=== PATIENT | female | born 1945 | race African-American/Black ===

== ENCOUNTER 2020-01-30 16:48 | Inpatient (IN) | payer OTHER ==
[~2020-01-30] VITALS: Ht 165.1 cm; Wt 81.6 kg
[2020-01-30] MEDS ORDERED: SODIUM CHLORIDE 0.9% 1,000 ML IV ONE ×3 (17:19→18:30)
[2020-01-30 17:48] LABS: HEMATOCRIT. 33.5 % (36.0-48.0); HEMOGLOBIN. 10.7 g/dL (12.0-16.0); MEAN CORPUSCULAR HEMOGLOBIN 30.6 pg (28.0-32.0); MEAN CORPUSCULAR VOLUME 95.5 fL (81.0-99.0); MEAN PLATELET VOLUME 8.7 fl (7.4-10.4); PLATELET 213 x1000/uL (130-400); RED BLOOD CELL COUNT 3.51 mill/uL (4.2-5.4)
[2020-01-30 17:55] LABS: INR 1.2; PROTHROMBIN TIME 13.2 sec (9.6-11.0)
[2020-01-30 18:22] LABS: NUCLEATED RED BLOOD CELLS 4 /100 WBC; PLATELET ESTIMATE NORMAL
[2020-01-30] MEDS ORDERED: NOREPINEPHRINE 4MG/250ML PMX 250 ML IV ONE (18:30)
[2020-01-30 18:35] LABS: CHLORIDE 118 mEq/L (98-107)
[2020-01-30] MEDS ORDERED: VANCOMYCIN 1 G PREMIX 200 ML IV ONE (20:15)
[2020-01-30] MEDS ORDERED: PIPERACILLIN/TAZ 3.375G PREMIX 50 ML IV ONE (20:15)
[2020-01-30 20:32] LABS: BG BASE EXCESS -23.2 mmol/L (-2.0-2.0); BG CARBOXYHEMOGLOBIN 1.8 % (0.5-1.5); BG DEOXYHEMOGLOBIN 8.5 % (0.0-5.0); BG FRACTION INSPIRED OXYGEN 21; BG HCO3 ACT 6.8 mmol/L (22.0-26.0); BG METHEMOGLOBIN 0.2 % (0.0-1.5); BG OXYGEN SATURATION 91.3 % (92.0-98.5); BG OXYHEMOGLOBIN 89.5 % (94.0-97.0); BG PCO2 28.8 mmHg (35.0-45.0); BG PH 6.992 (7.350-7.450); BG PO2 75.6 mmHg (75.0-100.0); BG SAMPLE SITE LEFT BRACHIAL; BG TOTAL HEMOGLOBIN 10.5 g/dL (12.0-18.0); BG VENT MODE ROOM AIR
[2020-01-30] MEDS ORDERED: SODIUM BICARBONATE 150 MEQ in DEXTROSE 5% WATER 1,000 ML IV SCH (20:45)
[2020-01-30] MEDS ORDERED: ETOMIDATE 2MG/ML 10ML VIAL IV ONE ×2 (20:45→20:55)
[2020-01-30] MEDS ORDERED: VECURONIUM BROMIDE 10 MG/VIAL IV ONE ×2 (20:45→20:55)
[2020-01-30] MEDS ORDERED: MIDAZOLAM HCL 50 MG in DEXTROSE 5% WATER 40 ML IV ONE (20:45)
[2020-01-30] MEDS ORDERED: SODIUM BICARBONATE 8.4% 1 MEQ/ML 50ML SYR IV ONE (20:45)
[2020-01-30] MEDS ORDERED: MIDAZOLAM HCL 100 MG in DEXT 5% WATER 80 ML IV ONE (21:00)
[2020-01-30] MEDS ORDERED: ACETAMINOPHEN 650MG SUPP PR PRN ×2 (21:00)
[2020-01-30] MEDS ORDERED: NOREPINEPHRINE 4 MG in DEXT 5% WATER 246 ML IV PRN (21:00)
[2020-01-30] MEDS ORDERED: ONDANSETRON HCL 4MG/2ML INJ IV PRN (21:00)
[2020-01-30] MEDS ORDERED: VANCOMYCIN 1 G PREMIX 200 ML IV SCH (21:00)
[2020-01-30] MEDS ORDERED: PIPERACILLIN/TAZ 3.375G PREMIX 50 ML IV SCH (21:00)
[2020-01-30 21:42] LABS: BG BASE EXCESS -18.2 mmol/L (-2.0-2.0); BG CARBOXYHEMOGLOBIN 1.4 % (0.5-1.5); BG DEOXYHEMOGLOBIN 0.7 % (0.0-5.0); BG FRACTION INSPIRED OXYGEN 100; BG HCO3 ACT 9.8 mmol/L (22.0-26.0); BG METHEMOGLOBIN 0.2 % (0.0-1.5); BG OXYGEN SATURATION 99.3 % (92.0-98.5); BG OXYHEMOGLOBIN 97.7 % (94.0-97.0); BG PCO2 30.8 mmHg (35.0-45.0); BG PH 7.122 (7.350-7.450); BG PO2 270.7 mmHg (75.0-100.0); BG SAMPLE SITE RIGHT FEMORAL; BG TIDAL VOLUME(mL) 500 mL; BG TOTAL HEMOGLOBIN 10.5 g/dL (12.0-18.0); BG VENT MODE VENT - A/C; BG VENT RATE 18 set
[2020-01-31] VITALS (91 sets, daily range): BP systolic 28–143; BP diastolic 19–87
[2020-01-31 00:55] LABS: CLARITY URINE CLEAR (CLEAR); COLOR URINE YELLOW (YELLOW); KETONES URINE NEGATIVE (NEGATIVE); LEUKOCYTE ESTERASE URINE NEGATIVE (NEGATIVE); NITRITE URINE NEGATIVE (NEGATIVE); OCCULT BLOOD URINE 3+ (NEGATIVE); PROTEIN URINE 2+ (NEGATIVE); SPECIFIC GRAVITY URINE 1.015 (1.005-1.030); UROBILINOGEN URINE 0.2 E.U./dL (0.2-1.0)
[2020-01-31] MEDS ORDERED: NOREPINEPHRINE 4 MG in DEXT 5% WATER 246 ML IV PRN (01:00)
[2020-01-31] MEDS ORDERED: IPRATROPIUM/ALBUTEROL 0.5-3(2.5)MG/3ML NEB HHN PRN (01:45)
[2020-01-31] MEDS ORDERED: SODIUM BICARBONATE 8.4% 1 MEQ/ML 50ML SYR IV SCH ×2 (01:45→04:30)
[2020-01-31] MEDS ORDERED: SODIUM CHLORIDE 0.9% 500 ML IV ONE ×2 (04:15→05:45)
[2020-01-31] MEDS ORDERED: NOREPINEPHRINE 8 MG in DEXT 5% WATER 242 ML IV PRN (04:30)
[2020-01-31] MEDS: PHENYLEPHRINE 40 MG in DEXT 5% WATER 246 ML IV PRN ×4 (05:04→16:49)
[2020-01-31] MEDS ORDERED: MORPHINE SULFATE 2 MG/ML CPJ (NOT FOR IM USE) IV PRN (05:45)
[2020-01-31 06:34] LABS: CHLORIDE 109 mEq/L (98-107)
[2020-01-31 06:40] LABS: PHOSPHORUS 4.9 mg/dL (2.5-4.9)
[2020-01-31] MEDS: PIPERACILLIN/TAZOBACTAM 2.25 G in DEXTROSE 5% WATER 50 ML IV SCH ×3 (06:56→22:00)
[2020-01-31] MEDS ORDERED: PHENYLEPHRINE 40 MG in DEXT 5% WATER 500 ML IV PRN (07:45)
[2020-01-31] MEDS: NOREPINEPHRINE 32 MG in DEXT 5% WATER 468 ML IV PRN ×2 (08:18→17:51)
[2020-01-31] MEDS: SODIUM BICARBONATE 150 MEQ in SODIUM CHLORIDE 0.45% 1,000 ML IV SCH ×2 (08:19→19:30)
[2020-01-31] MEDS: IPRATROPIUM/ALBUTEROL 0.5-3(2.5)MG/3ML NEB HHN SCH ×3 (08:20→20:24)
[2020-01-31 08:38] LABS: HEMATOCRIT. 31.5 % (36.0-48.0); HEMOGLOBIN. 10.4 g/dL (12.0-16.0); MEAN CORPUSCULAR VOLUME 90.7 fL (81.0-99.0); MEAN PLATELET VOLUME 8.6 fl (7.4-10.4); PLATELET 170 x1000/uL (130-400); RED BLOOD CELL COUNT 3.47 mill/uL (4.2-5.4); RED CELL DISTRIBUTION WIDTH 14.5 % (11.6-14.6)
[2020-01-31] MEDS: PANTOPRAZOLE SODIUM 40 MG/VIAL IV SCH (10:00)
[2020-01-31 10:32] LABS: BG BASE EXCESS -7.9 mmol/L (-2.0-2.0); BG CARBOXYHEMOGLOBIN 2.2 % (0.5-1.5); BG DEOXYHEMOGLOBIN 7.9 % (0.0-5.0); BG FRACTION INSPIRED OXYGEN 60; BG METHEMOGLOBIN 0.2 % (0.0-1.5); BG OXYGEN SATURATION 91.9 % (92.0-98.5); BG OXYHEMOGLOBIN 89.7 % (94.0-97.0); BG PCO2 27.6 mmHg (35.0-45.0); BG PH 7.382 (7.350-7.450); BG PO2 63.7 mmHg (75.0-100.0); BG SAMPLE SITE LEFT RADIAL; BG TIDAL VOLUME(mL) 500 mL; BG TOTAL HEMOGLOBIN 9.7 g/dL (12.0-18.0); BG VENT MODE VENT - A/C; BG VENT RATE 18 set
[2020-01-31 10:57] LABS: NUCLEATED RED BLOOD CELLS 3 /100 WBC
[2020-01-31 10:58] LABS: PLATELET ESTIMATE NORMAL
[2020-01-31] MEDS: VASOPRESSIN 10 UNIT in SODIUM CHLORIDE 0.9% 99.5 ML IV PRN ×2 (11:52→15:16)
[2020-01-31] MEDS ORDERED: DEXTROSE 50% WATER 50ML SYRINGE IV PRN (12:15)
[2020-01-31] MEDS ORDERED: FENTANYL CITRATE/PF 1,000 MCG in SODIUM CHLORIDE 0.9% 80 ML IV PRN (12:30)
[2020-01-31] MEDS: BLOOD SUGAR DIAGNOSTIC STRIP TEST SCH ×3 (12:39→23:24)
[2020-01-31] MEDS ORDERED: KCL 20MEQ/100ML PREMIX 100 ML IV SCH (13:00)
[2020-01-31] MEDS: INSULIN LISPRO 100 UNITS/ML SUBCUT SCH ×3 (13:48→23:29)
[2020-01-31] MEDS ORDERED: LINEZOLID 600 MG PREMIX 300 ML IV SCH (18:30)
[2020-01-31] MEDS ORDERED: SODIUM CHLORIDE 0.9% 1,000 ML IV NR (20:00)
[2020-01-31] MEDS: LINEZOLID 600 MG PREMIX 300 ML IV SCH (20:30)
[2020-01-31 20:41] LABS: HEMATOCRIT. 31.8 % (36.0-48.0); HEMOGLOBIN. 10.3 g/dL (12.0-16.0); MEAN CORPUSCULAR HEMOGLOBIN 30.3 pg (28.0-32.0); MEAN CORPUSCULAR VOLUME 93.9 fL (81.0-99.0); MEAN PLATELET VOLUME 9.2 fl (7.4-10.4); PLATELET 151 x1000/uL (130-400); RED BLOOD CELL COUNT 3.39 mill/uL (4.2-5.4); RED CELL DISTRIBUTION WIDTH 14.9 % (11.6-14.6)
[2020-01-31 20:48] LABS: CHLORIDE 102 mEq/L (98-107)
[2020-01-31 20:54] LABS: PHOSPHORUS 5.1 mg/dL (2.5-4.9)
[2020-01-31 21:08] LABS: CREATINE KINASE 2504 IU/L (26-192)
[2020-01-31 21:52] LABS: BG BASE EXCESS -18.4 mmol/L (-2.0-2.0); BG CARBOXYHEMOGLOBIN 1.2 % (0.5-1.5); BG FRACTION INSPIRED OXYGEN 70; BG HCO3 ACT 6.8 mmol/L (22.0-26.0); BG METHEMOGLOBIN 0.1 % (0.0-1.5); BG OXYGEN SATURATION 95.9 % (92.0-98.5); BG OXYHEMOGLOBIN 94.7 % (94.0-97.0); BG PCO2 16.2 mmHg (35.0-45.0); BG PH 7.244 (7.350-7.450); BG PO2 105.6 mmHg (75.0-100.0); BG SAMPLE SITE RIGHT RADIAL; BG TIDAL VOLUME(mL) 500 mL; BG TOTAL HEMOGLOBIN 9.6 g/dL (12.0-18.0); BG VENT MODE VENT - A/C; BG VENT RATE 18 set
[2020-01-31] MEDS: HYDROCORTISONE SOD SUCCINATE 100 MG/2 ML VIAL IV SCH (22:00)
[2020-01-31] MEDS ORDERED: SODIUM BICARBONATE 8.4% 1 MEQ/ML 50ML SYR IV NR (22:30)
[2020-01-31] MEDS ORDERED: SODIUM BICARBONATE 8.4% 1 MEQ/ML 50ML SYR IV ONE (22:35)
[2020-01-31 23:00] LABS: PLATELET ESTIMATE NORMAL
[2020-01-31] MEDS ORDERED: ALBUMIN HUMAN 25GM/100ML (25%) IV SCH (23:00)
[2020-01-31] MEDS ORDERED: VANCOMYCIN 750 MG PREMIX 150 ML IV SCH (23:30)
[2020-01-31] MEDS: INSULIN GLARGINE UD 100 UNITS/ML SYR SUBCUT SCH (23:51)
[2020-02-01] VITALS (91 sets, daily range): BP systolic 70–143; BP diastolic 41–92
[2020-02-01] MEDS: IPRATROPIUM/ALBUTEROL 0.5-3(2.5)MG/3ML NEB HHN SCH ×2 (02:40→08:05)
[2020-02-01] MEDS ORDERED: SODIUM CHLORIDE 0.9% 1,000 ML IV ONE (03:15)
[2020-02-01] MEDS: PHENYLEPHRINE 40 MG in DEXT 5% WATER 246 ML IV PRN ×5 (03:44→23:14)
[2020-02-01] MEDS: VASOPRESSIN 10 UNIT in SODIUM CHLORIDE 0.9% 99.5 ML IV PRN ×3 (04:30→22:06)
[2020-02-01] MEDS: SODIUM BICARBONATE 150 MEQ in SODIUM CHLORIDE 0.45% 1,000 ML IV SCH ×2 (05:27→12:04)
[2020-02-01] MEDS: NOREPINEPHRINE 32 MG in DEXT 5% WATER 468 ML IV PRN (05:33)
[2020-02-01] MEDS: HYDROCORTISONE SOD SUCCINATE 100 MG/2 ML VIAL IV SCH ×3 (06:00→22:27)
[2020-02-01] MEDS: PIPERACILLIN/TAZOBACTAM 2.25 G in DEXTROSE 5% WATER 50 ML IV SCH ×3 (06:50→21:11)
[2020-02-01] MEDS: INSULIN LISPRO 100 UNITS/ML SUBCUT SCH ×4 (08:00→22:27)
[2020-02-01] MEDS: BLOOD SUGAR DIAGNOSTIC STRIP TEST SCH ×4 (08:26→21:34)
[2020-02-01] MEDS: PANTOPRAZOLE SODIUM 40 MG/VIAL IV SCH (08:51)
[2020-02-01] MEDS: LINEZOLID 600 MG PREMIX 300 ML IV SCH ×2 (08:51→21:11)
[2020-02-01 09:56] LABS: BG BASE EXCESS -9.7 mmol/L (-2.0-2.0); BG CARBOXYHEMOGLOBIN 2.3 % (0.5-1.5); BG DEOXYHEMOGLOBIN 4.6 % (0.0-5.0); BG FRACTION INSPIRED OXYGEN 70; BG HCO3 ACT 12.7 mmol/L (22.0-26.0); BG OXYGEN SATURATION 95.3 % (92.0-98.5); BG OXYHEMOGLOBIN 93.1 % (94.0-97.0); BG PCO2 18.6 mmHg (35.0-45.0); BG PH 7.451 (7.350-7.450); BG PO2 86.2 mmHg (75.0-100.0); BG SAMPLE SITE LEFT RADIAL; BG TIDAL VOLUME(mL) 500 mL; BG TOTAL HEMOGLOBIN 8.8 g/dL (12.0-18.0); BG VENT MODE VENT - A/C; BG VENT RATE 24 set
[2020-02-01] MEDS: INSULIN GLARGINE UD 100 UNITS/ML SYR SUBCUT SCH ×2 (10:25→22:27)
[2020-02-01 16:53] LABS: HEMATOCRIT. 30.5 % (36.0-48.0); HEMOGLOBIN. 10.2 g/dL (12.0-16.0); MEAN CORPUSCULAR HEMOGLOBIN 29.9 pg (28.0-32.0); MEAN CORPUSCULAR VOLUME 89.1 fL (81.0-99.0); MEAN PLATELET VOLUME 9.3 fl (7.4-10.4); PLATELET 90 x1000/uL (130-400); RED BLOOD CELL COUNT 3.43 mill/uL (4.2-5.4); RED CELL DISTRIBUTION WIDTH 14.2 % (11.6-14.6)
[2020-02-01 16:55] LABS: BG BASE EXCESS -2.2 mmol/L (-2.0-2.0); BG CARBOXYHEMOGLOBIN 1.1 % (0.5-1.5); BG DEOXYHEMOGLOBIN 4.6 % (0.0-5.0); BG FRACTION INSPIRED OXYGEN 70; BG HCO3 ACT 19.8 mmol/L (22.0-26.0); BG METHEMOGLOBIN 0.1 % (0.0-1.5); BG OXYGEN SATURATION 95.3 % (92.0-98.5); BG OXYHEMOGLOBIN 94.2 % (94.0-97.0); BG PCO2 25.1 mmHg (35.0-45.0); BG PH 7.515 (7.350-7.450); BG PO2 84.3 mmHg (75.0-100.0); BG SAMPLE SITE LEFT BRACHIAL; BG TIDAL VOLUME(mL) 500 mL; BG TOTAL HEMOGLOBIN 9.5 g/dL (12.0-18.0); BG VENT MODE VENT - A/C; BG VENT RATE 24 set
[2020-02-01] MEDS ORDERED: SODIUM BICARBONATE 50 MEQ in SODIUM CHLORIDE 0.45% 1,000 ML IV SCH (17:00)
[2020-02-01 17:06] LABS: PHOSPHORUS 5.6 mg/dL (2.5-4.9)
[2020-02-01 17:40] LABS: PLATELET ESTIMATE DECREASED
[2020-02-01 17:51] LABS: HEPATITIS B SURFACE ANTIGEN NEGATIVE
[2020-02-01] MEDS: CALCITRIOL 0.5MCG CAPSULE GT SCH (18:00)
[2020-02-01 18:21] LABS: HEPATITIS A AB IGM NEGATIVE (NEGATIVE)
[2020-02-01] MEDS ORDERED: MAGNESIUM 2 G PREMIX 50 ML IV NR (20:00)
[2020-02-01] MEDS: DEXT 5%/0.9% NACL 1,000 ML IV SCH (20:12)
[2020-02-01] MEDS: CALCIUM GLUCONATE 1,000 MG in DEXTROSE 5% WATER 50 ML IV SCH (21:11)
[2020-02-01] MEDS: KCL 20MEQ/100ML PREMIX 100 ML IV SCH ×3 (21:34→23:47)
[2020-02-01] MEDS: MIDAZOLAM HCL 100 MG in DEXT 5% WATER 80 ML IV PRN (23:14)
[2020-02-02] VITALS (96 sets, daily range): BP systolic 82–142; BP diastolic 43–75
[2020-02-02] MEDS: NOREPINEPHRINE 32 MG in DEXT 5% WATER 468 ML IV PRN ×2 (00:01→17:27)
[2020-02-02] MEDS: KCL 20MEQ/100ML PREMIX 100 ML IV SCH ×4 (01:55→07:17)
[2020-02-02] MEDS: VASOPRESSIN 10 UNIT in SODIUM CHLORIDE 0.9% 99.5 ML IV PRN ×5 (02:00→22:28)
[2020-02-02] MEDS: PHENYLEPHRINE 80 MG in DEXT 5% WATER 492 ML IV PRN ×3 (02:52→17:27)
[2020-02-02] MEDS: CALCIUM GLUCONATE 1,000 MG in DEXTROSE 5% WATER 50 ML IV SCH ×5 (03:59→23:36)
[2020-02-02] MEDS: DEXT 5%/0.9% NACL 1,000 ML IV SCH ×2 (04:00→13:25)
[2020-02-02 05:50] LABS: HEMOGLOBIN. 10.8 g/dL (12.0-16.0); MEAN CORPUSCULAR HEMOGLOBIN 30.6 pg (28.0-32.0); MEAN CORPUSCULAR VOLUME 90.9 fL (81.0-99.0); MEAN PLATELET VOLUME 9.7 fl (7.4-10.4); PLATELET 64 x1000/uL (130-400); RED BLOOD CELL COUNT 3.52 mill/uL (4.2-5.4)
[2020-02-02 06:04] LABS: CHLORIDE 94 mEq/L (98-107)
[2020-02-02 06:16] LABS: PHOSPHORUS 5.3 mg/dL (2.5-4.9)
[2020-02-02] MEDS: BLOOD SUGAR DIAGNOSTIC STRIP TEST SCH ×4 (06:26→21:59)
[2020-02-02] MEDS: HYDROCORTISONE SOD SUCCINATE 100 MG/2 ML VIAL IV SCH ×3 (06:33→22:04)
[2020-02-02] MEDS: INSULIN LISPRO 100 UNITS/ML SUBCUT SCH ×4 (06:34→21:00)
[2020-02-02] MEDS: PIPERACILLIN/TAZOBACTAM 2.25 G in DEXTROSE 5% WATER 50 ML IV SCH ×2 (06:35→13:30)
[2020-02-02] MEDS: DIATR MEGLU/DIATRIZOATE SOLN 30ML PO NR ×2 (07:00→08:50)
[2020-02-02] MEDS: PANTOPRAZOLE SODIUM 40 MG/VIAL IV SCH (08:50)
[2020-02-02] MEDS: IPRATROPIUM/ALBUTEROL 0.5-3(2.5)MG/3ML NEB HHN SCH ×4 (09:00→21:26)
[2020-02-02 09:12] LABS: BG BASE EXCESS -8.8 mmol/L (-2.0-2.0); BG CARBOXYHEMOGLOBIN 1.5 % (0.5-1.5); BG DEOXYHEMOGLOBIN 3.3 % (0.0-5.0); BG FRACTION INSPIRED OXYGEN 70; BG HCO3 ACT 14.3 mmol/L (22.0-26.0); BG METHEMOGLOBIN 0.2 % (0.0-1.5); BG OXYGEN SATURATION 96.6 % (92.0-98.5); BG PCO2 22.6 mmHg (35.0-45.0); BG PH 7.419 (7.350-7.450); BG PO2 104.8 mmHg (75.0-100.0); BG SAMPLE SITE RIGHT RADIAL; BG TIDAL VOLUME(mL) 500 mL; BG VENT MODE VENT - A/C; BG VENT RATE 24 set
[2020-02-02] MEDS: CALCITRIOL 0.5MCG CAPSULE GT SCH (09:43)
[2020-02-02] MEDS: LINEZOLID 600 MG PREMIX 300 ML IV SCH (09:43)
[2020-02-02 09:55] LABS: NUCLEATED RED BLOOD CELLS 2 /100 WBC; PLATELET ESTIMATE DECREASED
[2020-02-02] MEDS: INSULIN GLARGINE UD 100 UNITS/ML SYR SUBCUT SCH ×2 (10:37→22:05)
[2020-02-02] MEDS ORDERED: POTASSIUM CHLORIDE INJ 40 MEQ in DEXT 5% WATER 250 ML IV ONE (11:00)
[2020-02-02 13:59] LABS: OPIATES URINE SCREEN PRESUMTIVE POSITIVE (NEGATIVE)
[2020-02-02 14:00] LABS: *AMPHETAMINES SCREEN URINE NEGATIVE (NEGATIVE); *BARBITURATES SCREEN URINE NEGATIVE (NEGATIVE); *BENZODIAZEPINES SCREEN URINE PRESUMTIVE POSITIVE (NEGATIVE); *COCAINE SCREEN URINE NEGATIVE (NEGATIVE); CANNABINOID URINE SCREEN NEGATIVE (NEGATIVE); METHADONE URINE SCREEN NEGATIVE (NEGATIVE); PHENCYCLIDINE URINE SCREEN NEGATIVE (NEGATIVE)
[2020-02-02] MEDS ORDERED: DIATR MEGLU/DIATRIZOATE SOLN 30ML PO NR (16:00)
[2020-02-02 16:38] LABS: CHLORIDE 95 mEq/L (98-107); HEMATOCRIT. 31.7 % (36.0-48.0); HEMOGLOBIN. 10.6 g/dL (12.0-16.0); MEAN CORPUSCULAR HEMOGLOBIN 30.5 pg (28.0-32.0); MEAN CORPUSCULAR VOLUME 91.3 fL (81.0-99.0); MEAN PLATELET VOLUME 8.9 fl (7.4-10.4); RED BLOOD CELL COUNT 3.47 mill/uL (4.2-5.4); RED CELL DISTRIBUTION WIDTH 14.7 % (11.6-14.6)
[2020-02-02 16:41] LABS: PLATELET 38 x1000/uL (130-400)
[2020-02-02 16:43] LABS: PHOSPHORUS 4.4 mg/dL (2.5-4.9)
[2020-02-02 17:26] LABS: PLATELET ESTIMATE MARKEDLY DECREASED
[2020-02-02] MEDS: METRONIDAZOLE 500 MG PREMIX 100 ML IV SCH (17:40)
[2020-02-02 17:53] LABS: BG BASE EXCESS -8.8 mmol/L (-2.0-2.0); BG CARBOXYHEMOGLOBIN 1.2 % (0.5-1.5); BG DEOXYHEMOGLOBIN 4.3 % (0.0-5.0); BG FRACTION INSPIRED OXYGEN 70; BG HCO3 ACT 14.1 mmol/L (22.0-26.0); BG METHEMOGLOBIN 0.1 % (0.0-1.5); BG OXYGEN SATURATION 95.6 % (92.0-98.5); BG OXYHEMOGLOBIN 94.4 % (94.0-97.0); BG PCO2 22.4 mmHg (35.0-45.0); BG PH 7.418 (7.350-7.450); BG PO2 93.3 mmHg (75.0-100.0); BG SAMPLE SITE LEFT BRACHIAL; BG TIDAL VOLUME(mL) 500 mL; BG VENT MODE VENT - A/C; BG VENT RATE 24 set
[2020-02-02] MEDS ORDERED: CEFEPIME 1,000 MG in DEXTROSE 5% WATER 50 ML IV SCH (18:00)
[2020-02-02] MEDS ORDERED: KCL 20MEQ/100ML PREMIX 100 ML IV ONE ×2 (19:00→23:00)
[2020-02-02] MEDS: KCL 20MEQ/100ML PREMIX 100 ML IV ONE ×2 (21:30→22:02)
[2020-02-03] VITALS (99 sets, daily range): BP systolic 88–144; BP diastolic 47–86
[2020-02-03] MEDS: DEXT 5%/0.9% NACL 1,000 ML IV SCH ×3 (00:17→19:43)
[2020-02-03] MEDS: IPRATROPIUM/ALBUTEROL 0.5-3(2.5)MG/3ML NEB HHN SCH ×4 (01:08→20:55)
[2020-02-03] MEDS: METRONIDAZOLE 500 MG PREMIX 100 ML IV SCH ×2 (01:34→10:47)
[2020-02-03] MEDS: PHENYLEPHRINE 80 MG in DEXT 5% WATER 492 ML IV PRN ×3 (01:43→22:08)
[2020-02-03] MEDS: CALCIUM GLUCONATE 1,000 MG in DEXTROSE 5% WATER 50 ML IV SCH ×5 (03:05→19:43)
[2020-02-03 05:09] LABS: HIV SCREEN 4G Non Reactive (Non Reactive)
[2020-02-03] MEDS: VASOPRESSIN 10 UNIT in SODIUM CHLORIDE 0.9% 99.5 ML IV PRN ×2 (05:25→10:49)
[2020-02-03 05:28] LABS: HEMATOCRIT. 30.8 % (36.0-48.0); HEMOGLOBIN. 10.4 g/dL (12.0-16.0); MEAN CORPUSCULAR HEMOGLOBIN 30.6 pg (28.0-32.0); MEAN CORPUSCULAR VOLUME 90.9 fL (81.0-99.0); MEAN PLATELET VOLUME 9.2 fl (7.4-10.4); RED BLOOD CELL COUNT 3.39 mill/uL (4.2-5.4); RED CELL DISTRIBUTION WIDTH 14.5 % (11.6-14.6)
[2020-02-03 05:32] LABS: CHLORIDE 95 mEq/L (98-107)
[2020-02-03 05:37] LABS: PLATELET 28 x1000/uL (130-400)
[2020-02-03] MEDS: HYDROCORTISONE SOD SUCCINATE 100 MG/2 ML VIAL IV SCH ×3 (05:40→21:21)
[2020-02-03 05:42] LABS: PHOSPHORUS 4.6 mg/dL (2.5-4.9)
[2020-02-03 05:58] LABS: CREATINE KINASE 4543 IU/L (26-192)
[2020-02-03] MEDS: BLOOD SUGAR DIAGNOSTIC STRIP TEST SCH ×4 (06:08→21:15)
[2020-02-03] MEDS: INSULIN LISPRO 100 UNITS/ML SUBCUT SCH ×4 (06:09→21:20)
[2020-02-03 08:12] LABS: *CREATININE RANDOM URINE 39.6 mg/dL (Not Estab.); MICROALBUMIN RANDOM URINE 144.7 ug/mL (Not Estab.)
[2020-02-03] MEDS: CALCITRIOL 1MCG/ML AMP IV SCH (08:21)
[2020-02-03] MEDS: PANTOPRAZOLE SODIUM 40 MG/VIAL IV SCH (08:21)
[2020-02-03 08:25] LABS: BG BASE EXCESS -11.6 mmol/L (-2.0-2.0); BG CARBOXYHEMOGLOBIN 1.4 % (0.5-1.5); BG DEOXYHEMOGLOBIN 2.4 % (0.0-5.0); BG FRACTION INSPIRED OXYGEN 80; BG HCO3 ACT 12.4 mmol/L (22.0-26.0); BG OXYGEN SATURATION 97.6 % (92.0-98.5); BG OXYHEMOGLOBIN 96.2 % (94.0-97.0); BG PCO2 22.9 mmHg (35.0-45.0); BG PH 7.352 (7.350-7.450); BG PO2 123.3 mmHg (75.0-100.0); BG SAMPLE SITE LEFT RADIAL; BG TIDAL VOLUME(mL) 500 mL; BG TOTAL HEMOGLOBIN 9.7 g/dL (12.0-18.0); BG VENT MODE VENT - A/C; BG VENT RATE 24 set
[2020-02-03] MEDS: NOREPINEPHRINE 32 MG in DEXT 5% WATER 468 ML IV PRN (10:46)
[2020-02-03] MEDS: MIDAZOLAM HCL 100 MG in DEXT 5% WATER 80 ML IV PRN (10:48)
[2020-02-03 11:08] LABS: NUCLEATED RED BLOOD CELLS 5 /100 WBC; PLATELET ESTIMATE MARKEDLY DECREASED
[2020-02-03] MEDS: INSULIN GLARGINE UD 100 UNITS/ML SYR SUBCUT SCH ×2 (11:08→21:20)
[2020-02-03] MEDS: MEROPENEM 500MG in NORMAL SALINE 50ML IV SCH (17:56)
[2020-02-04] VITALS (97 sets, daily range): BP systolic 84–127; BP diastolic 43–71
[2020-02-04] MEDS: IPRATROPIUM/ALBUTEROL 0.5-3(2.5)MG/3ML NEB HHN SCH ×4 (01:42→20:50)
[2020-02-04 05:52] LABS: CHLORIDE 100 mEq/L (98-107)
[2020-02-04 05:59] LABS: HEMATOCRIT. 26.5 % (36.0-48.0); HEMOGLOBIN. 8.6 g/dL (12.0-16.0); MEAN CORPUSCULAR VOLUME 92.3 fL (81.0-99.0); RED BLOOD CELL COUNT 2.87 mill/uL (4.2-5.4); RED CELL DISTRIBUTION WIDTH 15.4 % (11.6-14.6)
[2020-02-04 06:07] LABS: PHOSPHORUS 5.1 mg/dL (2.5-4.9)
[2020-02-04] MEDS: BLOOD SUGAR DIAGNOSTIC STRIP TEST SCH ×4 (06:08→21:00)
[2020-02-04] MEDS: INSULIN LISPRO 100 UNITS/ML SUBCUT SCH ×4 (06:08→22:12)
[2020-02-04] MEDS: HYDROCORTISONE SOD SUCCINATE 100 MG/2 ML VIAL IV SCH ×3 (06:09→22:17)
[2020-02-04] MEDS: MEROPENEM 500MG in NORMAL SALINE 50ML IV SCH ×2 (06:09→19:03)
[2020-02-04 06:58] LABS: NUCLEATED RED BLOOD CELLS 2 /100 WBC
[2020-02-04 06:59] LABS: PLATELET ESTIMATE MARKEDLY DECREASED
[2020-02-04 07:00] LABS: PLATELET 9 x1000/uL (130-400)
[2020-02-04] MEDS: DEXT 5%/0.9% NACL 1,000 ML IV SCH (07:49)
[2020-02-04] MEDS: PHENYLEPHRINE 80 MG in DEXT 5% WATER 492 ML IV PRN ×2 (07:50→14:51)
[2020-02-04] MEDS: NOREPINEPHRINE 32 MG in DEXT 5% WATER 468 ML IV PRN (07:51)
[2020-02-04] MEDS ORDERED: SODIUM BICARBONATE 100 MEQ in DEXTROSE 5% WATER 1,000 ML IV SCH (09:00)
[2020-02-04] MEDS ORDERED: DIATR MEGLU/DIATRIZOATE SOLN 30ML NG NR (09:00)
[2020-02-04] MEDS ORDERED: POTASSIUM CHLORIDE INJ 40 MEQ in DEXT 5% WATER 250 ML IV NR (09:00)
[2020-02-04 09:11] LABS: BG BASE EXCESS -20.9 mmol/L (-2.0-2.0); BG CARBOXYHEMOGLOBIN 2.2 % (0.5-1.5); BG DEOXYHEMOGLOBIN 2.5 % (0.0-5.0); BG FRACTION INSPIRED OXYGEN 70; BG HCO3 ACT 7.2 mmol/L (22.0-26.0); BG OXYGEN SATURATION 97.4 % (92.0-98.5); BG OXYHEMOGLOBIN 95.3 % (94.0-97.0); BG PCO2 24.1 mmHg (35.0-45.0); BG PH 7.091 (7.350-7.450); BG PO2 132.3 mmHg (75.0-100.0); BG SAMPLE SITE LEFT RADIAL; BG TIDAL VOLUME(mL) 500 mL; BG TOTAL HEMOGLOBIN 7.4 g/dL (12.0-18.0); BG VENT MODE VENT - A/C; BG VENT RATE 24 set
[2020-02-04] MEDS ORDERED: SODIUM BICARBONATE 8.4% 1 MEQ/ML 50ML SYR IV NR ×2 (09:45→16:15)
[2020-02-04] MEDS: CALCITRIOL 1MCG/ML AMP IV SCH (10:27)
[2020-02-04] MEDS: PANTOPRAZOLE SODIUM 40 MG/VIAL IV SCH (10:28)
[2020-02-04] MEDS ORDERED: MAGNESIUM 2 G PREMIX 50 ML IV ONE (11:00)
[2020-02-04] MEDS: VASOPRESSIN 10 UNIT in SODIUM CHLORIDE 0.9% 99.5 ML IV PRN (11:16)
[2020-02-04] MEDS: INSULIN GLARGINE UD 100 UNITS/ML SYR SUBCUT SCH ×2 (11:17→22:18)
[2020-02-04] MEDS: CALCIUM GLUCONATE 1,000 MG in DEXT 5% WATER 90 ML IV SCH ×4 (12:32→23:45)
[2020-02-04] MEDS: SODIUM BICARBONATE 150 MEQ in DEXTROSE 5% WATER 1,000 ML IV SCH (12:33)
[2020-02-04 14:27] LABS: BG BASE EXCESS -19.4 mmol/L (-2.0-2.0); BG CARBOXYHEMOGLOBIN 1.7 % (0.5-1.5); BG DEOXYHEMOGLOBIN 3.4 % (0.0-5.0); BG FRACTION INSPIRED OXYGEN 70; BG HCO3 ACT 8.4 mmol/L (22.0-26.0); BG METHEMOGLOBIN 0.2 % (0.0-1.5); BG OXYGEN SATURATION 96.5 % (92.0-98.5); BG OXYHEMOGLOBIN 94.7 % (94.0-97.0); BG PCO2 27.2 mmHg (35.0-45.0); BG PH 7.108 (7.350-7.450); BG PO2 114.6 mmHg (75.0-100.0); BG SAMPLE SITE LEFT RADIAL; BG TIDAL VOLUME(mL) 500 mL; BG TOTAL HEMOGLOBIN 6.2 g/dL (12.0-18.0); BG VENT MODE VENT - A/C; BG VENT RATE 24 set
[2020-02-04 23:03] LABS: MEAN CORPUSCULAR HEMOGLOBIN 29.9 pg (28.0-32.0); MEAN PLATELET VOLUME 8.9 fl (7.4-10.4); PLATELET 61 x1000/uL (130-400); RED BLOOD CELL COUNT 1.81 mill/uL (4.2-5.4); RED CELL DISTRIBUTION WIDTH 16.2 % (11.6-14.6)
[2020-02-04 23:07] LABS: CHLORIDE 94 mEq/L (98-107)
[2020-02-04 23:09] LABS: INR 1.9; PROTHROMBIN TIME 20.7 sec (9.6-11.0)
[2020-02-04 23:19] LABS: HEMATOCRIT. 17.2 % (36.0-48.0); HEMOGLOBIN. 5.4 g/dL (12.0-16.0)
[2020-02-04 23:52] LABS: PLATELET ESTIMATE DECREASED
[2020-02-05] VITALS (93 sets, daily range): BP systolic 62–159; BP diastolic 41–118
[2020-02-05] MEDS: SODIUM BICARBONATE 150 MEQ in DEXTROSE 5% WATER 1,000 ML IV SCH ×4 (00:07→21:00)
[2020-02-05] MEDS: VASOPRESSIN 10 UNIT in SODIUM CHLORIDE 0.9% 99.5 ML IV PRN ×4 (00:41→18:20)
[2020-02-05] MEDS: PHENYLEPHRINE 80 MG in DEXT 5% WATER 492 ML IV PRN ×3 (01:13→17:46)
[2020-02-05] MEDS: IPRATROPIUM/ALBUTEROL 0.5-3(2.5)MG/3ML NEB HHN SCH ×3 (01:40→19:50)
[2020-02-05] MEDS: CALCIUM GLUCONATE 1,000 MG in DEXT 5% WATER 90 ML IV SCH ×5 (04:02→21:47)
[2020-02-05 04:13] LABS: OVA & PARASITE EXAM Final report (.)
[2020-02-05] MEDS: MEROPENEM 500MG in NORMAL SALINE 50ML IV SCH ×2 (06:14→18:19)
[2020-02-05] MEDS: HYDROCORTISONE SOD SUCCINATE 100 MG/2 ML VIAL IV SCH ×3 (06:14→22:52)
[2020-02-05] MEDS: NOREPINEPHRINE 32 MG in DEXT 5% WATER 468 ML IV PRN (06:23)
[2020-02-05] MEDS: BLOOD SUGAR DIAGNOSTIC STRIP TEST SCH ×4 (06:42→21:47)
[2020-02-05] MEDS: INSULIN LISPRO 100 UNITS/ML SUBCUT SCH ×4 (06:47→21:30)
[2020-02-05 07:29] LABS: HEMATOCRIT. 23.8 % (36.0-48.0); HEMOGLOBIN. 7.7 g/dL (12.0-16.0); MEAN CORPUSCULAR HEMOGLOBIN 30.7 pg (28.0-32.0); MEAN CORPUSCULAR VOLUME 94.8 fL (81.0-99.0); MEAN PLATELET VOLUME 8.8 fl (7.4-10.4); RED BLOOD CELL COUNT 2.51 mill/uL (4.2-5.4); RED CELL DISTRIBUTION WIDTH 15.2 % (11.6-14.6)
[2020-02-05 07:38] LABS: PLATELET 43 x1000/uL (130-400)
[2020-02-05 07:41] LABS: CHLORIDE 92 mEq/L (98-107)
[2020-02-05 07:47] LABS: PHOSPHORUS 7.2 mg/dL (2.5-4.9)
[2020-02-05 08:01] LABS: CREATINE KINASE 5930 IU/L (26-192)
[2020-02-05 08:50] LABS: NUCLEATED RED BLOOD CELLS 3 /100 WBC
[2020-02-05 08:51] LABS: PLATELET ESTIMATE MARKEDLY DECREASED
[2020-02-05] MEDS: PANTOPRAZOLE SODIUM 40 MG/VIAL IV SCH (09:27)
[2020-02-05] MEDS: CALCITRIOL 1MCG/ML AMP IV SCH (09:27)
[2020-02-05] MEDS: INSULIN GLARGINE UD 100 UNITS/ML SYR SUBCUT SCH ×2 (10:00→22:00)
[2020-02-05 11:14] LABS: BG BASE EXCESS -22.6 mmol/L (-2.0-2.0); BG CARBOXYHEMOGLOBIN 1.2 % (0.5-1.5); BG DEOXYHEMOGLOBIN 8.6 % (0.0-5.0); BG FRACTION INSPIRED OXYGEN 70; BG HCO3 ACT 6.3 mmol/L (22.0-26.0); BG METHEMOGLOBIN 0.3 % (0.0-1.5); BG OXYGEN SATURATION 91.3 % (92.0-98.5); BG OXYHEMOGLOBIN 89.9 % (94.0-97.0); BG PCO2 24.2 mmHg (35.0-45.0); BG PH 7.034 (7.350-7.450); BG PO2 83.7 mmHg (75.0-100.0); BG SAMPLE SITE RIGHT RADIAL; BG TIDAL VOLUME(mL) 500 mL; BG TOTAL HEMOGLOBIN 7.7 g/dL (12.0-18.0); BG VENT MODE VENT - A/C; BG VENT RATE 24 set
[2020-02-05] MEDS ORDERED: SODIUM BICARBONATE 8.4% 1 MEQ/ML 50ML SYR IV NR (13:30)
[2020-02-06] VITALS (37 sets, daily range): BP systolic 48–181; BP diastolic 21–98
[2020-02-06] MEDS: VASOPRESSIN 10 UNIT in SODIUM CHLORIDE 0.9% 99.5 ML IV PRN (00:22)
[2020-02-06] MEDS: CALCIUM GLUCONATE 1,000 MG in DEXT 5% WATER 90 ML IV SCH ×3 (00:23→08:17)
[2020-02-06] MEDS: NOREPINEPHRINE 32 MG in DEXT 5% WATER 468 ML IV PRN (00:52)
[2020-02-06] MEDS: PHENYLEPHRINE 80 MG in DEXT 5% WATER 492 ML IV PRN (00:58)
[2020-02-06] MEDS: IPRATROPIUM/ALBUTEROL 0.5-3(2.5)MG/3ML NEB HHN SCH ×2 (03:55→08:46)
[2020-02-06 05:08] LABS: MEAN CORPUSCULAR VOLUME 98.2 fL (81.0-99.0); MEAN PLATELET VOLUME 7.8 fl (7.4-10.4); RED BLOOD CELL COUNT 1.83 mill/uL (4.2-5.4); RED CELL DISTRIBUTION WIDTH 16.5 % (11.6-14.6)
[2020-02-06 05:14] LABS: CHLORIDE 79 mEq/L (98-107); HEMOGLOBIN. 5.7 g/dL (12.0-16.0)
[2020-02-06 05:15] LABS: PLATELET 14 x1000/uL (130-400)
[2020-02-06 05:55] LABS: CREATINE KINASE 13004 IU/L (26-192)
[2020-02-06 05:56] LABS: PHOSPHORUS 11.2 mg/dL (2.5-4.9)
[2020-02-06] MEDS: MEROPENEM 500MG in NORMAL SALINE 50ML IV SCH (06:06)
[2020-02-06] MEDS: HYDROCORTISONE SOD SUCCINATE 100 MG/2 ML VIAL IV SCH (06:06)
[2020-02-06] MEDS: INSULIN LISPRO 100 UNITS/ML SUBCUT SCH (07:00)
[2020-02-06] MEDS: BLOOD SUGAR DIAGNOSTIC STRIP TEST SCH (07:09)
[2020-02-06 07:24] LABS: NUCLEATED RED BLOOD CELLS 4 /100 WBC; PLATELET ESTIMATE MARKEDLY DECREASED
[2020-02-06] MEDS: CALCITRIOL 1MCG/ML AMP IV SCH (08:17)
[2020-02-06] MEDS: PANTOPRAZOLE SODIUM 40 MG/VIAL IV SCH (08:17)
[2020-02-06] MEDS: SODIUM BICARBONATE 150 MEQ in DEXTROSE 5% WATER 1,000 ML IV SCH (08:17)
== END 2020-02-06 13:15 | disposition expired | DRG 870 ==
LOC: ER 16:48 → ENRESERV 21:57 → 5EST 01-31 00:20 → MICUSO 02-01 17:40
PROVIDERS: ADMIT Internal Medicine; ATTEND Internal Medicine
PROC: 0BH17EZ Insertion of Endotracheal Airway into Trachea, Via Natural or Artificial Opening (ICD-10-PCS; principal; 2020-01-30)
PROC: 5A1955Z Respiratory Ventilation, Greater than 96 Consecutive Hours (ICD-10-PCS; 2020-01-30)
PROC: 05HY33Z Insertion of Infusion Device into Upper Vein, Percutaneous Approach (ICD-10-PCS; 2020-01-30)
PROC: B54NZZA Ultrasonography of Left Upper Extremity Veins, Guidance (ICD-10-PCS; 2020-01-30)
PROC: 05HY33Z Insertion of Infusion Device into Upper Vein, Percutaneous Approach (ICD-10-PCS; 2020-01-31)
PROC: B54NZZA Ultrasonography of Left Upper Extremity Veins, Guidance (ICD-10-PCS; 2020-01-31)
PROC: 30233N1 Transfusion of Nonautologous Red Blood Cells into Peripheral Vein, Percutaneous Approach (ICD-10-PCS; 2020-02-05)
DX: A41.51 Sepsis due to Escherichia coli [E. coli] (principal); E43 Unspecified severe protein-calorie malnutrition; G93.41 Metabolic encephalopathy; J96.00 Acute respiratory failure, unspecified whether with hypoxia or hypercapnia; K72.00 Acute and subacute hepatic failure without coma; R65.21 Severe sepsis with septic shock; J15.5 Pneumonia due to Escherichia coli; N17.9 Acute kidney failure, unspecified; Z16.12 Extended spectrum beta lactamase (ESBL) resistance; D64.9 Anemia, unspecified; K80.20 Calculus of gallbladder without cholecystitis without obstruction; F11.10 Opioid abuse, uncomplicated; E83.51 Hypocalcemia; E87.6 Hypokalemia; Z20.828 Contact with and (suspected) exposure to other viral communicable diseases; K74.60 Unspecified cirrhosis of liver; K59.00 Constipation, unspecified; Z66 Do not resuscitate; D69.59 Other secondary thrombocytopenia; K52.9 Noninfective gastroenteritis and colitis, unspecified; J32.0 Chronic maxillary sinusitis; E11.22 Type 2 diabetes mellitus with diabetic chronic kidney disease; I12.9 Hypertensive chronic kidney disease with stage 1 through stage 4 chronic kidney disease, or unspecified chronic kidney disease; N18.9 Chronic kidney disease, unspecified; Z78.1 Physical restraint status; Z68.30 Body mass index [BMI] 30.0-30.9, adult; Z86.73 Personal history of transient ischemic attack (TIA), and cerebral infarction without residual deficits
CPT/HCPCS: 36415; 36600; 71045; 74018; 74176; 76700; 76937; 80048; 80053; 80076; 80202; 80305; 81003; 82043; 82105; 82330; 82375; 82378; 82550; 82570; 82705; 82805; 82962; 83036; 83605; 83735; 83935; 84100; 84132; 84145; 84300; 84484; 85025; 86304; 86705; 86709; 86803; 86850; 86900; 86920; 87015; 87045; 87070; 87077; 87177; 87186; 87209; 87340; 87389; 87427; 87449; 87493; 93005; 93970; 94003; 94640; 96365; 99291; C1725; C9113; J0610; J0636; J0692; J1720; J1815; J2020; J2185; J2250; J2270; J2370; J2543; J3010; J3370; J3475; J3480; J3490; J7030; J7042; J7050; J7060; J7070; P9016; P9034; P9047; Q9963; U0003-CS